=== PATIENT | male | born 1960 | race Caucasian/White ===

== ENCOUNTER 2018-07-06 15:02 | Emergency (ER) | payer OTHER ==
[~2018-07-06] VITALS: Ht 177.8 cm; Wt 86.6 kg
[~2018-07-06 15:02] MED LIST: ACET500T71 PO; ALBU25PO2 INH; AMLO10TA6 PO; ASPI-696 PO; CHOL3000 PO; CITA40TA5 PO; CLON0.1T PO; FLUT1DIS3 INH; FURO-93 PO; HYDR12.53 PO; IBUP-1221 PO; L.AC1CAP6 PO; MOEX1TAB5 PO; MOME13HF2 IH; OMEP-110 PO; PANT20TA3 PO; RED600CA2 PO; RIVA20TA PO; SOTA80TA18 PO; UBID10CA5 PO; VITA1CAP PO
[2018-07-06] MEDS ORDERED: ACETAMINOPHEN 500 MG TABLET PO ONE (15:30)
[2018-07-06] MEDS ORDERED: SODIUM CHLORIDE 0.9% 1,000ML IVBOLUS ONE (15:30)
[2018-07-06] MEDS ORDERED: SILVER SULF. CRM 1% , 25GM TP ONE (15:30)
[2018-07-06 15:37] LABS: BASOPHILS # (AUTO) 0.04 x10^3/uL (0-0.1); BASOPHILS % (AUTO) 0 % (0-1); EOSINOPHILS # (AUTO) 0.02 x10^3/uL (0-0.4); EOSINOPHILS % (AUTO) 0 % (1-7); LYMPHOCYTES # (AUTO) 2.27 x10^3/uL (1-3.4); LYMPHOCYTES % (AUTO) 22 % (22-44); MD NO; MEAN CORPUSCULAR HEMOGLOBIN 32.7 pg (27.5-34.5); MEAN CORPUSCULAR HGB CONC 34.3 g/dL (33.2-36.2); MEAN CORPUSCULAR VOLUME 95.2 fL (81-97); MEAN PLATELET VOLUME 9.3 fL (7.4-10.4); MONOCYTES # (AUTO) 1.44 x10^3/uL (0.2-0.8); MONOCYTES % (AUTO) 14 % (2-9); NEUTROPHILS # (AUTO) 6.73 x10^3/uL (1.8-6.8); NEUTROPHILS % (AUTO) 64 % (42-75); PLATELET COUNT 307 x10^3/uL (130-400); RED BLOOD COUNT 5.09 x10^6/uL (4.38-5.82); RED CELL DISTRIBUTION WIDTH 13.7 % (9.4-14.8)
[2018-07-06 15:49] LABS: ALBUMIN 4.5 g/dL (3.4-5.0); ANION GAP 11 mmol/L (5-15); CALCIUM 9.2 mg/dL (8.5-10.1); CHLORIDE 97 mmol/L (98-107); CREATININE 2.04 mg/dL (0.7-1.3)
[2018-07-06] MEDS ORDERED: SILVER SULF. CRM 1% , 25GM ONE (15:57)
[2018-07-06 16:46] VITALS: BP 133/88
== END 2018-07-06 17:00 | disposition home or self-care (01) ==
LOC: ED 15:34
DX: T22.112A Burn of first degree of left forearm, initial encounter (principal); L03.114 Cellulitis of left upper limb; T31.0 Burns involving less than 10% of body surface; I10 Essential (primary) hypertension; X15.8XXA Contact with other hot household appliances, initial encounter; Y93.89 Activity, other specified; Y99.8 Other external cause status; Y92.89 Other specified places as the place of occurrence of the external cause
CPT/HCPCS: 16000; 36415; 80048; 82040; 85025; 99284; J7030

== ENCOUNTER 2020-02-08 10:34 | Day surgery (SDC) | payer OTHER ==
[2020-02-07 12:17] LABS: BASOPHILS # (AUTO) 0.05 x10^3/uL (0-0.1); BASOPHILS % (AUTO) 1 % (0-1); EOSINOPHILS # (AUTO) 0.05 x10^3/uL (0-0.4); EOSINOPHILS % (AUTO) 1 % (1-7); LYMPHOCYTES # (AUTO) 1.86 x10^3/uL (1-3.4); LYMPHOCYTES % (AUTO) 22 % (22-44); MD NO; MEAN CORPUSCULAR HEMOGLOBIN 32.7 pg (27.5-34.5); MEAN CORPUSCULAR HGB CONC 33.5 g/dL (33.2-36.2); MEAN CORPUSCULAR VOLUME 97.7 fL (81-97); MEAN PLATELET VOLUME 9.4 fL (7.4-10.4); MONOCYTES # (AUTO) 1.08 x10^3/uL (0.2-0.8); MONOCYTES % (AUTO) 13 % (2-9); NEUTROPHILS # (AUTO) 5.39 x10^3/uL (1.8-6.8); NEUTROPHILS % (AUTO) 64 % (42-75); PLATELET COUNT 257 x10^3/uL (130-400); RED BLOOD COUNT 4.66 x10^6/uL (4.38-5.82); RED CELL DISTRIBUTION WIDTH 12.7 % (9.4-14.8)
[2020-02-07 12:26] LABS: ANION GAP 5 mmol/L (5-15); CHLORIDE 104 mmol/L (98-107)
[2020-02-07 12:29] LABS: CREATININE 0.89 mg/dL (0.7-1.3)
[~2020-02-08] VITALS: Ht 177.8 cm; Wt 85.0 kg
[~2020-02-08 10:34] MED LIST changes: +ACET-1600 PO; +ACET500T64 PO; -ACET500T71 PO; -AMLO10TA6 PO; +AMLO10TA8 PO; +CHOL5000 PO; -CLON0.1T PO; +CLON0.1T22 PO; +FOLI0.4T2 PO; +HYDR12.517 PO; -HYDR12.53 PO; +HYDROCHLOROTH12.5 MG PO; +MOME13HF INH; +PROPOFOL 10 MG/ML, 20ML ONE; +SOTA80TA PO; +UBID100C41 PO; +Vitamin B12 PO
== END 2020-02-08 13:30 | disposition home or self-care (01) ==
LOC: CACL 10:34
PROVIDERS: ATTEND Internal Medicine Cardiovascular Disease
DX: I48.0 Paroxysmal atrial fibrillation (principal); Z11.59 Encounter for screening for other viral diseases; I34.0 Nonrheumatic mitral (valve) insufficiency; I35.1 Nonrheumatic aortic (valve) insufficiency; I36.1 Nonrheumatic tricuspid (valve) insufficiency; E11.9 Type 2 diabetes mellitus without complications; I10 Essential (primary) hypertension; E78.00 Pure hypercholesterolemia, unspecified; J45.20 Mild intermittent asthma, uncomplicated; G47.33 Obstructive sleep apnea (adult) (pediatric); Z79.01 Long term (current) use of anticoagulants; Z88.8 Allergy status to other drugs, medicaments and biological substances; Z79.899 Other long term (current) drug therapy
CPT/HCPCS: 36415; 80048; 85025; 87635; 92960; 93312; 93321; 93325; J2704

== ENCOUNTER 2020-02-25 14:27 | Emergency (ER) | payer OTHER ==
[~2020-02-25] VITALS: Ht 177.8 cm; Wt 86.5 kg
[~2020-02-25 14:27] MED LIST changes: -PROPOFOL 10 MG/ML, 20ML ONE
[2020-02-25] MEDS ORDERED: CLIN300C8 PO (14:46)
--- NOTE | 2020-02-25 15:07 | NUR ---
PT STATES:TWO WEEKS AGO: A-FIB W/ CARDIOVERSION, RX FOR XARELTO STARTED. BLOODY NOSE THIS PAST THURSDAY. JUMPED OUT OF BED, FELL ON KNEE AND ABDOMEN. HIT LEG ON WOODEN CABINET. SIGNIFICANT BRUISING TO LT LEG FROM KNEE TO ANKLE, SCAB TO [place], + PEDAL EDEMA. ABRASIONS & BRUISING TO ABDOMEN (EPIGASTRIC AREA & RT SIDE). C/O LEG PAIN, DIFFICULTY BENDING KNEE. REPORTS HE'S ABLE TO WALK. ALEVE TAKEN AT 0900 TODAY.
--- NOTE | 2020-02-25 15:12 | NUR ---
DR DIAZ BS FOR EXAM.
[2020-02-25 15:20] LABS: BASOPHILS # (AUTO) 0.03 x10^3/uL (0-0.1); BASOPHILS % (AUTO) 0 % (0-1); EOSINOPHILS # (AUTO) 0.12 x10^3/uL (0-0.4); EOSINOPHILS % (AUTO) 1 % (1-7); LYMPHOCYTES # (AUTO) 1.28 x10^3/uL (1-3.4); LYMPHOCYTES % (AUTO) 15 % (22-44); MD NO; MEAN CORPUSCULAR HEMOGLOBIN 32.1 pg (27.5-34.5); MEAN CORPUSCULAR HGB CONC 33.7 g/dL (33.2-36.2); MEAN CORPUSCULAR VOLUME 95.4 fL (81-97); MONOCYTES # (AUTO) 1.03 x10^3/uL (0.2-0.8); MONOCYTES % (AUTO) 12 % (2-9); NEUTROPHILS # (AUTO) 6.13 x10^3/uL (1.8-6.8); NEUTROPHILS % (AUTO) 71 % (42-75); PLATELET COUNT 219 x10^3/uL (130-400); RED BLOOD COUNT 3.99 x10^6/uL (4.38-5.82); RED CELL DISTRIBUTION WIDTH 12.4 % (9.4-14.8)
[2020-02-25] MEDS ORDERED: PANT20TA2 PO (15:26)
[2020-02-25 15:28] LABS: ALBUMIN 3.8 g/dL (3.4-5.0); ANION GAP 4 mmol/L (5-15); CHLORIDE 106 mmol/L (98-107); CREATININE 0.91 mg/dL (0.7-1.3)
[2020-02-25] MEDS ORDERED: SODIUM CHLORIDE FLUSH 10ML SYR IVF ONE ×2 (15:30)
[2020-02-25] MEDS ORDERED: OMNIPAQUE 350 MG/ML, 100ML BOTTLE ONE (16:01)
[2020-02-25 16:18] VITALS: BP 140/83
--- NOTE | 2020-02-25 16:44 | NUR ---
ARIELLE CEDEÑO BS DISCUSSING DC POC
== END 2020-02-25 17:04 | disposition home or self-care (01) ==
LOC: ED 16:03
DX: S30.1XXA Contusion of abdominal wall, initial encounter (principal); S80.812A Abrasion, left lower leg, initial encounter; M25.462 Effusion, left knee; I48.91 Unspecified atrial fibrillation; I10 Essential (primary) hypertension; J45.909 Unspecified asthma, uncomplicated; X58.XXXA Exposure to other specified factors, initial encounter; Y93.89 Activity, other specified; Y92.89 Other specified places as the place of occurrence of the external cause; Y99.8 Other external cause status
CPT/HCPCS: 36415; 73564; 74177; 80048; 82040; 85025; 93971; 99285; Q9967

== ENCOUNTER → 2020-05-01 | Outpatient (CLI) | payer OTHER ==
[~2020-05-01] MED LIST changes: +CLIN300C8 PO; +PANT20TA2 PO; -PANT20TA3 PO; +PANT20TA4 PO
== END | disposition home or self-care (01) ==
LOC: CVU 06:57
PROVIDERS: ATTEND Nurse Practitioner Family
DX: I34.0 Nonrheumatic mitral (valve) insufficiency (principal); I48.0 Paroxysmal atrial fibrillation; I11.9 Hypertensive heart disease without heart failure
CPT/HCPCS: 93306

== ENCOUNTER 2020-09-04 10:50 | Day surgery (SDC) | payer OTHER ==
[~2020-09-04] VITALS: Ht 177.8 cm; Wt 89.0 kg
[~2020-09-04 10:50] MED LIST changes: +AMLO-211 PO; -AMLO10TA8 PO; -CLIN300C8 PO; +CLIN300C9 PO
[2020-09-04] MEDS ORDERED: FLUT1DIS3 INH (12:28)
[2020-09-04] MEDS ORDERED: LACT1CAP11 PO (12:28)
[2020-09-04] MEDS ORDERED: MULT-500 PO (12:28)
[2020-09-04] MEDS ORDERED: APIX5TAB PO (12:28)
[2020-09-04 12:37] LABS: BASOPHILS % (AUTO) 1 % (0-1); EOSINOPHILS % (AUTO) 1 % (1-7); LYMPHOCYTES % (AUTO) 23 % (22-44); MEAN CORPUSCULAR HEMOGLOBIN 31.2 pg (27.5-34.5); MEAN CORPUSCULAR HGB CONC 33.5 g/dL (33.2-36.2); MEAN PLATELET VOLUME 9.2 fL (7.4-10.4); MONOCYTES % (AUTO) 14 % (2-9); NEUTROPHILS % (AUTO) 61 % (42-75); PLATELET COUNT 258 x10^3/uL (130-400); RED BLOOD COUNT 4.91 x10^6/uL (4.38-5.82); RED CELL DISTRIBUTION WIDTH 14.9 % (9.4-14.8)
[2020-09-04 12:41] LABS: MD NO
[2020-09-04 12:50] LABS: ANION GAP 7 mmol/L (5-15); CALCIUM 8.8 mg/dL (8.5-10.1); CHLORIDE 102 mmol/L (98-107); CREATININE 1.57 mg/dL (0.7-1.3)
[2020-09-04] MEDS ORDERED: PROPOFOL 10 MG/ML, 50ML ONE (13:04)
== END 2020-09-04 14:39 | disposition home or self-care (01) ==
LOC: CACL 10:50
PROVIDERS: ATTEND Internal Medicine Cardiovascular Disease
DX: I48.0 Paroxysmal atrial fibrillation (principal); I48.92 Unspecified atrial flutter; I34.0 Nonrheumatic mitral (valve) insufficiency; I10 Essential (primary) hypertension; E11.9 Type 2 diabetes mellitus without complications; E78.5 Hyperlipidemia, unspecified; G47.33 Obstructive sleep apnea (adult) (pediatric); Z20.822 Contact with and (suspected) exposure to COVID-19; Z79.01 Long term (current) use of anticoagulants; Z79.899 Other long term (current) drug therapy; Z88.8 Allergy status to other drugs, medicaments and biological substances
CPT/HCPCS: 36415; 80048; 85025; 87635; 92960; 93312; 93321; 93325; J2704

== ENCOUNTER 2020-09-17 08:36 | Emergency (ER) | payer OTHER ==
[~2020-09-17] VITALS: Ht 177.8 cm; Wt 90.0 kg
[~2020-09-17 08:36] MED LIST changes: +APIX5TAB PO; +LACT1CAP11 PO; +MULT-500 PO
--- NOTE | 2020-09-17 08:38 | NUR ---
PT BROUGHT BACK FOR CHIEF COMPLAINT OF AFLUTTER, PALPIATIONS, SOB STARTING YESTERDAY. HX A FLUTTER, CARDIOVERT ABOUT 2 WEEKS AGO. ON ELIQUIS
--- NOTE | 2020-09-17 08:44 | NUR ---
SELVIN FREEMAN AT BEDSIDE FOR EVALUATION
[2020-09-17 09:07] LABS: BASOPHILS % (AUTO) 0 % (0-1); EOSINOPHILS % (AUTO) 0 % (1-7); LYMPHOCYTES % (AUTO) 8 % (22-44); MEAN CORPUSCULAR HEMOGLOBIN 31.7 pg (27.5-34.5); MEAN CORPUSCULAR HGB CONC 33.9 g/dL (33.2-36.2); MEAN PLATELET VOLUME 9.7 fL (7.4-10.4); MONOCYTES % (AUTO) 9 % (2-9); NEUTROPHILS % (AUTO) 84 % (42-75); PLATELET COUNT 267 x10^3/uL (130-400); RED BLOOD COUNT 4.75 x10^6/uL (4.38-5.82); RED CELL DISTRIBUTION WIDTH 14.6 % (9.4-14.8)
[2020-09-17 09:10] LABS: MD NO
--- NOTE | 2020-09-17 09:23 | NUR ---
PT resting in bed, call light in reach
[2020-09-17 09:37] LABS: CHLORIDE 101 mmol/L (98-107)
[2020-09-17 09:56] LABS: ALANINE AMINOTRANSFERASE 86 U/L (12-78); ALBUMIN 4.4 g/dL (3.4-5.0); ALKALINE PHOSPHATASE 80 U/L (45-117); ANION GAP 9 mmol/L (5-15); BILIRUBIN,TOTAL 1.5 mg/dL (0.2-1.0); CALCIUM 9.5 mg/dL (8.5-10.1); CREATININE 1.41 mg/dL (0.7-1.3); TOTAL PROTEIN 8.7 g/dL (6.4-8.2); TROPONIN I < 0.015 ng/mL (0.000-0.045)
--- NOTE | 2020-09-17 10:06 | NUR ---
PT resting in bed, no complaints at this time.
--- NOTE | 2020-09-17 10:43 | NUR ---
SELVIN FREEMAN AT BEDSIDE TO DISCUSS POC
[2020-09-17] MEDS ORDERED: PROPOFOL 10 MG/ML, 20ML ONE (10:57)
[2020-09-17] MEDS ORDERED: PROPOFOL 10 MG/ML, 20ML IVPush ONE (11:00)
[2020-09-17 11:52] VITALS: BP 129/83
--- NOTE | 2020-09-17 12:10 | NUR ---
Discharge instructions reviewed
== END 2020-09-17 12:12 | disposition home or self-care (01) ==
LOC: ED 10:10
DX: I48.92 Unspecified atrial flutter (principal); I48.91 Unspecified atrial fibrillation; R07.9 Chest pain, unspecified; I10 Essential (primary) hypertension; J45.909 Unspecified asthma, uncomplicated; Z88.8 Allergy status to other drugs, medicaments and biological substances
CPT/HCPCS: 36415; 71045; 80053; 83735; 83880; 84484; 85025; 92960; 93005; 99152; 99291; J2704

== ENCOUNTER → 2020-11-17 | Outpatient (CLI) | payer OTHER ==
[~2020-11-17] MED LIST changes: -FOLI0.4T2 PO; +FOLI0.4T5 PO
[2020-11-17 08:13] LABS: BASOPHILS % (AUTO) 1 % (0-1); EOSINOPHILS % (AUTO) 1 % (1-7); LYMPHOCYTES % (AUTO) 18 % (22-44); MEAN CORPUSCULAR HEMOGLOBIN 31.7 pg (27.5-34.5); MEAN PLATELET VOLUME 9.7 fL (7.4-10.4); MONOCYTES % (AUTO) 14 % (2-9); NEUTROPHILS % (AUTO) 65 % (42-75); PLATELET COUNT 245 x10^3/uL (130-400); RED BLOOD COUNT 4.42 x10^6/uL (4.38-5.82); RED CELL DISTRIBUTION WIDTH 12.7 % (9.4-14.8)
[2020-11-17 08:15] LABS: MD NO
[2020-11-17 08:21] LABS: ALANINE AMINOTRANSFERASE 66 U/L (12-78); ALBUMIN 3.8 g/dL (3.4-5.0); ANION GAP 7 mmol/L (5-15); CALCIUM 8.6 mg/dL (8.5-10.1); CHLORIDE 104 mmol/L (98-107); CREATININE 1.39 mg/dL (0.7-1.3)
[2020-11-17 08:23] LABS: ALKALINE PHOSPHATASE 74 U/L (45-117); TOTAL PROTEIN 7.9 g/dL (6.4-8.2)
== END | disposition home or self-care (01) ==
LOC: LAB 07:43
PROVIDERS: ATTEND Nurse Practitioner Family
DX: R74.8 Abnormal levels of other serum enzymes (principal)
CPT/HCPCS: 36415; 80053; 85025; 86704; 86706; 86708; 86803; 87340

== ENCOUNTER 2020-12-09 12:34 | Emergency (ER) | payer OTHER ==
[~2020-12-09] VITALS: Ht 177.8 cm; Wt 93.0 kg
--- NOTE | 2020-12-09 12:50 | NUR ---
PT C/O OF CP AND SOB ON EXERTION AND COULD NOT CATCH HIS BREATH THIS MONRING. HAS BEEN IN AFLUTTER FPOR LAST MONTH. PAIN RADIATES DOWN RIGHT ARM AND PRESSURE IN CHEST. DENIES N/V AND HEADACHE BUT DOES FEEL DIZZY.
--- NOTE | 2020-12-09 13:14 | NUR ---
REPORT GIVEN TO KAYLEIGH ABRAHAM
[2020-12-09 13:37] LABS: BASOPHILS % (AUTO) 1 % (0-1); EOSINOPHILS % (AUTO) 1 % (1-7); LYMPHOCYTES % (AUTO) 15 % (22-44); MEAN CORPUSCULAR HEMOGLOBIN 31.4 pg (27.5-34.5); MEAN CORPUSCULAR HGB CONC 33.2 g/dL (33.2-36.2); MEAN PLATELET VOLUME 9.2 fL (7.4-10.4); MONOCYTES % (AUTO) 14 % (2-9); NEUTROPHILS % (AUTO) 69 % (42-75); PLATELET COUNT 259 x10^3/uL (130-400); RED BLOOD COUNT 4.42 x10^6/uL (4.38-5.82); RED CELL DISTRIBUTION WIDTH 14.1 % (9.4-14.8)
[2020-12-09 13:38] LABS: MD NO
--- NOTE | 2020-12-09 13:40 | NUR ---
DISCUSSED POC WITH PT AND AT BEDSIDE, CURRETLY AWAITING LAB RESULTS FOR POSSIBLE CARDIOVERSION. VSS, REMAINS AFIB ON MONITOR IN 60S.
[2020-12-09 13:47] LABS: ALANINE AMINOTRANSFERASE 39 U/L (12-78); ALBUMIN 4.3 g/dL (3.4-5.0); ANION GAP 6 mmol/L (5-15); CALCIUM 8.8 mg/dL (8.5-10.1); CHLORIDE 110 mmol/L (98-107); CREATININE 1.15 mg/dL (0.7-1.3)
[2020-12-09 13:51] LABS: ALKALINE PHOSPHATASE 67 U/L (45-117); BILIRUBIN,TOTAL 0.9 mg/dL (0.2-1.0); TOTAL PROTEIN 8.1 g/dL (6.4-8.2); TROPONIN I < 0.015 ng/mL (0.000-0.045)
--- NOTE | 2020-12-09 14:40 | NUR ---
ROOM PREPPED FOR CARDIOVERSION PROCEDURE, PT OK FOR STUDENTS AT BEDSIDE FOR PROCEDURE, ERMD AT BEDSIDE AT THIS TIME. SEE PROCEDURAL NOTES.
[2020-12-09] MEDS ORDERED: PROPOFOL 10 MG/ML, 20ML ONE (14:41)
[2020-12-09] MEDS ORDERED: PROPOFOL 10 MG/ML, 20ML IVPush ONE (15:00)
[2020-12-09 15:33] VITALS: BP 146/92
== END 2020-12-09 15:37 | disposition home or self-care (01) ==
LOC: ED 15:20
DX: I48.92 Unspecified atrial flutter (principal); I48.91 Unspecified atrial fibrillation; J45.909 Unspecified asthma, uncomplicated; I10 Essential (primary) hypertension
CPT/HCPCS: 36415; 71045; 80053; 84484; 85025; 92960; 93005; 99285

== ENCOUNTER → 2020-12-18 | Outpatient (CLI) | payer OTHER ==
[~2020-12-18] MED LIST changes: +OMNIPAQUE 350 MG/ML, 100ML BOTTLE ONE
== END | disposition home or self-care (01) ==
LOC: CFH 09:50
PROVIDERS: ATTEND Internal Medicine Cardiovascular Disease
DX: I51.7 Cardiomegaly (principal); E78.5 Hyperlipidemia, unspecified; I10 Essential (primary) hypertension; I48.0 Paroxysmal atrial fibrillation
CPT/HCPCS: 71046; 75572; Q9967

== ENCOUNTER 2020-12-21 06:02 | Observation (INO) | payer OTHER ==
[~2020-12-21] VITALS: Ht 177.8 cm; Wt 94.3 kg
[~2020-12-21 06:02] MED LIST changes: -OMNIPAQUE 350 MG/ML, 100ML BOTTLE ONE
[2020-12-21] MEDS ORDERED: UBID100C41 PO (06:33)
[2020-12-21] MEDS ORDERED: LOSA1TAB19 PO (06:33)
[2020-12-21 06:35] VITALS: BP 120/78
[2020-12-21] MEDS ORDERED: SODIUM CHLORIDE 0.9% 1,000 ML IV SCH ×2 (07:00)
[2020-12-21 07:03] LABS: BASOPHILS % (AUTO) 1 % (0-1); EOSINOPHILS % (AUTO) 1 % (1-7); LYMPHOCYTES % (AUTO) 22 % (22-44); MEAN CORPUSCULAR HEMOGLOBIN 31.5 pg (27.5-34.5); MEAN CORPUSCULAR HGB CONC 33.9 g/dL (33.2-36.2); MEAN PLATELET VOLUME 9.2 fL (7.4-10.4); MONOCYTES % (AUTO) 24 % (2-9); NEUTROPHILS % (AUTO) 52 % (42-75); PLATELET COUNT 272 x10^3/uL (130-400); RED BLOOD COUNT 4.52 x10^6/uL (4.38-5.82); RED CELL DISTRIBUTION WIDTH 13.9 % (9.4-14.8)
[2020-12-21 07:06] LABS: MD NO
[2020-12-21 07:11] LABS: ANION GAP 5 mmol/L (5-15); CALCIUM 9.1 mg/dL (8.5-10.1); CHLORIDE 106 mmol/L (98-107); CREATININE 1.05 mg/dL (0.7-1.3)
[2020-12-21] MEDS ORDERED: MIDAZOLAM 1 MG/ML, 2ML ONE (07:57)
[2020-12-21] MEDS ORDERED: FENTANYL PF 250 MCG/5ML ONE (07:57)
[2020-12-21] MEDS ORDERED: LIDOCAINE 1%, 20ML ONE (08:09)
[2020-12-21] MEDS ORDERED: ONDANSETRON 2MG/ML, 2ML ONE (08:31)
[2020-12-21] MEDS ORDERED: EPHEDRINE 50 MG/ML, 1ML ONE (08:31)
[2020-12-21] MEDS ORDERED: LIDOCAINE-MPF 2% ,5ML ONE (09:13)
[2020-12-21] MEDS ORDERED: ROCURONIUM 10MG/ML,5ML ONE (09:13)
[2020-12-21] MEDS ORDERED: HEPARIN 1,000 UNITS/ML, 10ML ONE ×3 (09:13→10:17)
[2020-12-21] MEDS ORDERED: PROPOFOL 10 MG/ML, 20ML ONE (09:13)
[2020-12-21] MEDS ORDERED: DEXAMETHASONE 4 MG/ML, 1ML ONE ×2 (09:14)
[2020-12-21] MEDS ORDERED: FENTANYL PF 100 MCG/2ML ONE ×3 (10:10→11:03)
[2020-12-21] MEDS ORDERED: EPHEDRINE 50 MG/ML, 1ML IVPush PRN (12:00)
[2020-12-21] MEDS ORDERED: PROMETHAZINE 25 MG/ML, 1ML IVPush PRN (12:00)
[2020-12-21] MEDS ORDERED: DIAZEPAM 5 MG/ML, 2ML IVPush PRN (12:00)
[2020-12-21] MEDS ORDERED: HYDROmorphone 1 MG/ML, 1ML INJ IVPush PRN (12:00)
[2020-12-21] MEDS ORDERED: PROMETHAZINE 12.5 MG SUPP PR PRN (12:00)
[2020-12-21] MEDS ORDERED: hydrALAzine 20 MG/ML, 1ML IV PRN (12:00)
[2020-12-21] MEDS ORDERED: FENTANYL PF 100 MCG/2ML IV PRN (12:00)
[2020-12-21] MEDS ORDERED: ACETAMINOPHEN 325 MG TABLET PO PRN ×2 (12:00)
[2020-12-21] MEDS ORDERED: ONDANSETRON 2MG/ML, 2ML IVPush PRN (12:00)
[2020-12-21] MEDS ORDERED: ALBUTEROL SULFATE 2.5 MG/3 ML NPPB PRN (12:00)
[2020-12-21] MEDS ORDERED: DIPHENHYDRAMINE 50 MG/ML, 1ML IVPush PRN ×2 (12:00)
[2020-12-21] MEDS ORDERED: APIXABAN 5 MG TABLET PO SCH (12:00)
[2020-12-21] MEDS ORDERED: MIDAZOLAM 1 MG/ML, 2ML IV PRN (12:00)
[2020-12-21] MEDS ORDERED: MEPERIDINE/PF 25MG/0.5ML IVPush PRN (12:00)
[2020-12-21] MEDS ORDERED: OXYcodone 5 MG/5 ML ORAL.SOL UDC PO PRN (12:00)
[2020-12-21] MEDS ORDERED: LABETALOL 5MG/ML, 20ML IV PRN (12:00)
[2020-12-21] MEDS ORDERED: APIXABAN 5 MG TABLET ONE (12:20)
[2020-12-21] MEDS: APIXABAN 5 MG TABLET PO SCH ×2 (12:22→21:51)
[2020-12-21 14:00] VITALS: BP 111/73
[2020-12-21 20:32] VITALS: BP 113/72
[2020-12-21] MEDS ORDERED: TEMPLATE NON-FORMULARY MED. (Fluticasone/Salmeterol** (Advair 250-50 Diskus**) 1 PUFF) INH SCH (21:00)
[2020-12-21] MEDS: COLCHICINE 0.6 MG CAPSULE PO SCH (21:51)
[2020-12-21] MEDS: SOTALOL 80MG TABLET PO SCH (21:51)
[2020-12-22 00:46] VITALS: BP 112/77
[2020-12-22 08:58] VITALS: BP 128/85
[2020-12-22] MEDS ORDERED: AMLODIPINE 10 MG TAB PO SCH (09:00)
[2020-12-22] MEDS ORDERED: MULTIVITAMINS/MINERALS TABLET PO SCH (09:00)
[2020-12-22] MEDS ORDERED: HYDROCHLOROTHIAZIDE 12.5 MG CAPSULE PO SCH (09:00)
[2020-12-22] MEDS ORDERED: CYANOCOBALAMIN 1,000 MCG TABLET PO SCH (09:00)
[2020-12-22] MEDS ORDERED: TEMPLATE NON-FORMULARY MED. (Ubidecarenone** (Co Q-10**) 200 MG) PO SCH (09:00)
[2020-12-22] MEDS ORDERED: CHOLECALCIFEROL 1,000 UNIT TABLET PO SCH (09:00)
[2020-12-22] MEDS ORDERED: PANTOPRAZOLE 20MG TABLET PO SCH (09:00)
[2020-12-22] MEDS ORDERED: FLUTICASONE/VILANTEROL 200-25MCG/INH INH SCH (09:00)
[2020-12-22] MEDS ORDERED: LOSARTAN 50MG TABLET PO SCH (09:00)
[2020-12-22] MEDS ORDERED: TEMPLATE NON-FORMULARY MED. (Losartan/Hydrochlorothiazide** (Losartan-Hctz 50-12.5 Mg Tab PO SCH (09:00)
[2020-12-22 09:30] VITALS: BP 133/85
[2020-12-22] MEDS ORDERED: ACET325T26 PO (09:31)
[2020-12-22] MEDS ORDERED: COLC0.6C3 PO (09:31)
[2020-12-22] MEDS: COLCHICINE 0.6 MG CAPSULE PO SCH (09:32)
[2020-12-22] MEDS: SOTALOL 80MG TABLET PO SCH (09:34)
[2020-12-22] MEDS: APIXABAN 5 MG TABLET PO SCH (09:34)
== END 2020-12-22 10:45 | disposition home or self-care (01) ==
LOC: CACL 06:02 → ORIP 11:44 → 5SO 13:01 → DCLOUNGE 12-22 10:30
PROVIDERS: ADMIT Internal Medicine Cardiovascular Disease; ATTEND Internal Medicine Cardiovascular Disease
DX: I48.0 Paroxysmal atrial fibrillation (principal); Z20.822 Contact with and (suspected) exposure to COVID-19; I48.92 Unspecified atrial flutter; E11.9 Type 2 diabetes mellitus without complications; I10 Essential (primary) hypertension; E78.5 Hyperlipidemia, unspecified; J44.9 Chronic obstructive pulmonary disease, unspecified; G47.33 Obstructive sleep apnea (adult) (pediatric); Z79.01 Long term (current) use of anticoagulants; Z79.899 Other long term (current) drug therapy
CPT/HCPCS: 36415; 80048; 85025; 87635; 93306; 93312; 93321; 93325; 93613; 93656; 93657; 93662; 94640; C1730; C1732; C1759; C1766; C1893; C1894; G0378; J1100; J1644; J2250; J2405; J2704; J3010; J3490; U0003

== ENCOUNTER 2021-05-03 10:30 | Observation (INO) | payer OTHER ==
[~2021-05-03] VITALS: Ht 177.8 cm; Wt 85.5 kg
[2021-05-04 06:48] VITALS: BP 128/84
== END 2021-05-04 12:48 | disposition home or self-care (01) ==
LOC: CACL 10:30 → ORIP 16:25 → 5SO 17:22
PROVIDERS: ADMIT Internal Medicine Cardiovascular Disease; ATTEND Internal Medicine Cardiovascular Disease
DX: I48.91 Unspecified atrial fibrillation (principal); Z20.822 Contact with and (suspected) exposure to COVID-19; I48.4 Atypical atrial flutter; I10 Essential (primary) hypertension; J45.909 Unspecified asthma, uncomplicated; E78.5 Hyperlipidemia, unspecified; G47.33 Obstructive sleep apnea (adult) (pediatric); Z79.899 Other long term (current) drug therapy

== ENCOUNTER 2021-05-06 08:33 | Outpatient (CLI) | payer OTHER ==
[~2021-05-06 08:33] MED LIST changes: +ACET325T26 PO; +ASCO100018 PO; +COLC0.6C3 PO; +LOSA1TAB19 PO; +ZINC30TA2 PO
[2021-05-06 10:01] LABS: BASOPHILS % (AUTO) 1 % (0-1); EOSINOPHILS % (AUTO) 1 % (1-7); LYMPHOCYTES % (AUTO) 10 % (22-44); MEAN CORPUSCULAR HEMOGLOBIN 32.5 pg (27.5-34.5); MEAN CORPUSCULAR HGB CONC 34.3 g/dL (33.2-36.2); MEAN PLATELET VOLUME 9.8 fL (7.4-10.4); MONOCYTES % (AUTO) 14 % (2-9); NEUTROPHILS % (AUTO) 75 % (42-75); PLATELET COUNT 199 x10^3/uL (130-400); RED BLOOD COUNT 3.84 x10^6/uL (4.38-5.82); RED CELL DISTRIBUTION WIDTH 14.5 % (9.4-14.8)
[2021-05-06 11:29] LABS: HCT (SEDRATE) 36.4 % (39.2-51.8)
== END 2021-05-06 23:59 | disposition home or self-care (01) ==
LOC: CVU 08:33 → RAD 23:59
PROVIDERS: ATTEND Physician Assistant Medical
DX: I08.1 Rheumatic disorders of both mitral and tricuspid valves (principal); R06.00 Dyspnea, unspecified; I10 Essential (primary) hypertension; E78.5 Hyperlipidemia, unspecified; I31.3 Pericardial effusion (noninflammatory)
CPT/HCPCS: 36415; 71046; 85025; 85651; 93005; 93308; 93321; 93325